=== PATIENT | female | born 1975 | race Caucasian/White ===

== ENCOUNTER 2022-06-21 16:36 | Emergency (ER) | payer MEDICARE, SELFPAY ==
[2022-06-21 16:46] VITALS: BP 116/79; PULSE 82; RESP 18; TEMP 36.8; O2SAT 99; BMI 27.4
--- NOTE | 2022-06-21 17:23 | ED_ITS ---
HPI - General Adult General Chief complaint: Laceration/Wound Stated complaint: Infected pinky finger Time Seen by Provider: 06/21/22 16:43 History of Present Illness HPI narrative: This 46-year-old female comes in with a paronychial infection of her left little finger. These symptoms started a bit more than a day ago. She has some mild erythema on the base of the nail of the left little finger. There is an area of drainage right next to the nail. She came in today because she is concerned about sepsis. She has had a kidney transplant and is on anti-rejection drugs. She states that she has had sepsis 3 times in the past. Today she is not having any fever, hypotension, or tachycardia. The erythema and discomfort is located only in the distal portion of the left little finger. There is no sign of spread from this location. Related Data Home Medications Medication Instructions Recorded Confirmed Unobtainable 06/21/22 06/21/22 Allergies Allergy/AdvReac Type Severity Reaction Status Date / Time adhesive tape Allergy Mild Rash Verified 06/21/22 16:53 secobarbital [From Seconal] Allergy Mild hyperactivi Verified 06/21/22 16:53 ty phlorohydrate Allergy Mild swelling Uncoded 06/21/22 16:53 of left arm Review of Systems Status of ROS: Reports: 10 or more systems reviewed and unremarkable except as noted in History and below Narrative: Constitutional: No fevers, no weight gain or loss. Eyes: No discharge. No vision changes. HENT: No congestion, no sore throat, no ear pain. Cardiovascular: No chest pain, no palpitations. Respiratory: No shortness of breath, no wheezes, no cough. Gastrointestinal: No abdominal pain, no vomiting, no diarrhea. Genitourinary: No dysuria, no hematuria. Musculoskeletal: Normal range of motion. Skin: No rashes, no pruritis. Paronychial infection the left little finger. Neurological: No dizziness, weakness, sensory change, speech change. Endo/Heme/Allergies: No bruising or bleeding. No polydipsia. Pysch: no suicidality, no anxiety, no insomnia. All other systems reviewed and are negative. PFSH PFS Social History Smoking Status: Never smoker Second hand tobacco smoke exposure: No How often do you have a drink containing alcohol: monthly or less AUDIT-C Alcohol total score: 1 Non-prescribed substance use: denies use Exam Narrative: Exam Narrative: Constitutional: Well-developed, well-nourished, no acute distress. HEENT: Normocephalic, atraumatic. Neck: Normal range of motion. Nontender. Supple. Heart: Intact distal pulses. Lungs: No chest discomfort. No wheezes, rhonchi, or rales. Abdomen: Nontender. Back: Normal range of motion. Extremities: Normal range of motion. Small area of erythema with on the edge of the left little finger nail. This is typical of a paronychial infection which appears to have drained this very small amount of fluid. Skin: Intact. No rash. Warm. No erythema or pallor. Neurologic: No altered sensation. No weakness. Alert and oriented. Psychiatric: No suicidality. No anxiety or depression. No insomnia. Nursing notes and vitals signs are reviewed. Const: Vital Signs, click to edit/add: Vital Signs - 24 hr 06/21/22 16:46 Temperature 98.2 F Pulse Rate [Right Pulse Oximeter] 82 Respiratory Rate 18 Blood Pressure [Le ft Upper Arm] 116/79 Pulse Oximetry 99 Oxygen Delivery Me thod Room Air Course Vital Signs Vital signs: Initial Vital Signs Temperature 98.2 F 06/21/22 16:46 Temperature Source Temporal Artery Scan 06/21/22 16:46 Pulse Rate 82 06/21/22 16:46 Respiratory Rate 18 06/21/22 16:46 Blood Pressure 116/79 06/21/22 16:46 Blood Pressure Mean 91 06/21/22 16:46 Blood Pressure Position Supine 06/21/22 16:46 Pulse Oximetry 99 06/21/22 16:46 Oxygen Delivery Method 06/21/22 16:46 Vital Signs Temperature 98.2 F 06/21/22 16:46 Pulse Rate 82 06/21/22 16:46 Respiratory Rate 18 06/21/22 16:46 Blood Pressure 116/79 06/21/22 16:46 Pulse Oximetry 99 06/21/22 16:46 Oxygen Delivery Method 06/21/22 16:46 Temperature 98.2 F 06/21/22 16:46 Pulse Rate 82 06/21/22 16:46 Respiratory Rate 18 06/21/22 16:46 Blood Pressure 116/79 06/21/22 16:46 Pulse Oximetry 99 06/21/22 16:46 Oxygen Delivery Method 06/21/22 16:46 Medical Decision Making MDM Narrative Medical decision making narrative: This patient is somewhat hypervigilant with regard to a very small paronychial infection of her left little finger that appears to be healing properly on its own. She is afraid of sepsis and thus comes in for further evaluation and treatment. I did examine this area under magnification and cleanse the wound with alcohol. I placed a small amount of bacitracin ointment and then a Band- Aid. I gave reassurance is to her that this is a very localized small infection and is not showing any signs of progression or certainly sepsis. I did advise her regarding signs and symptoms that would indicate a need for return and re- evaluation. Discharge Plan Discharge Clinical Impression: Paronychia of finger of left hand Patient Disposition: Home, Self-Care Condition: Stable Instructions: Paronychia (ED) Additional Instructions: Keep wound clean and dry. Follow up with MD as needed or return if worsening symptoms occur. Prescriptions: No Action Unobtainable Stand Alone Forms: [address] Info Instructions
== END 2022-06-21 17:38 | disposition home or self-care (01) ==
LOC: ED 17:29
PROVIDERS: Emergency Provider Emergency Medicine Emergency Medical Services
DX: L03.012 Cellulitis of left finger (principal); Z94.0 Kidney transplant status
CPT/HCPCS: 99283

== ENCOUNTER 2023-12-10 13:32 | Outpatient (RCR) | payer MEDICARE, SELFPAY ==
[2023-12-10 13:50] VITALS: BP 120/78; PULSE 89; RESP 16; TEMP 36.4; O2SAT 94
[2023-12-10] MEDS: 0.9 % SODIUM CHLORIDE 1000 ml 1,000 ML IV (14:25)
== END 2024-06-07 23:59 | disposition home or self-care (01) ==
LOC: CCIC 13:32
PROVIDERS: Visit Provider Clinical Nurse Specialist
DX: E86.0 Dehydration (principal); N17.9 Acute kidney failure, unspecified; Z94.0 Kidney transplant status
CPT/HCPCS: 96360; J7030

== ENCOUNTER 2023-12-14 09:54 | Emergency (ER) | payer MEDICARE, SELFPAY ==
[2023-12-14 10:02] VITALS: BP 128/85; PULSE 86; RESP 18; TEMP 36.7; O2SAT 95; BMI 29.9
--- NOTE | 2023-12-14 10:31 | XR_ITS ---
Final Report Patient: DAVID BAINS Facility:?[facility] Patient ID:?[id number] Site Patient ID:?[id number]. Site :?[id number] Study:?XRay Chest 2 VIEW-12/14/2023 10:52:23 AM Ordering Physician:?DR RAHMAN Final Report: INDICATION: COUGH X 3 WEEKS TECHNIQUE: Chest 2 views. COMPARISON: Chest x-ray June 27, 2023. FINDINGS: Cardiovascular and mediastinum: Heart size and vasculature are normal in caliber and appearance. Lungs and pleural spaces: Small right pleural effusion and mild patchy opacity which may represent atelectasis or consolidation. The left lung remains clear. No pneumothorax. Bones and soft tissues: Reported [employer] shunt partially visualized. IMPRESSION: Small right pleural effusion and mild patchy opacity which may represent atelectasis or consolidation. Dictated by Morgan Vizcaino MD @ 12/14/2023 10:58:00 AM (Electronic Signature)
--- NOTE | 2023-12-14 10:40 | ED_ITS ---
HPI - General Adult General Date Seen: 12/14/23 Chief complaint: Cough Stated complaint: coughed up blood an hour ago Time Seen by Provider: 12/14/23 10:20 Source: patient, RN notes reviewed and old records reviewed Mode of arrival: ambulatory Limitations: no limitations History of Present Illness HPI narrative: Patient is a 48-year-old woman with a history of kidney transplant in 2013 who presents for evaluation of blood tinged sputum. She tells me that she has had an illness that started around 's Day including cough, headache, fatigue, congestion etcetera. She tells me that she contacted her transplant team, apparently had a creatinine at that time of 2.9 was told that she should rest and increase fluids. She was here last she says get IV fluids. This morning, she was scheduled to go to [facility] for her routine blood draw, but she coughed up sputum that was pink tinged. She reports some shortness of breath over the past couple of weeks, she has some pain in bilateral lateral rib cage area only when she coughs. She tells me she has a history of blood clots in both of her arms, but has never been on anticoagulation so I suspect that this was not DVT. She takes a baby aspirin at present. She has not had fevers. She does not smoke, does not drink. Has not had any lower extremity swelling or pain. She is unsure whether her creatinine had returned to baseline, I do not see any evidence of a visit from last or any blood work. Related Data Home Medications Medication Instructions Recorded Confirmed albuterol 90 mcg/actuation aerosol mcg inhalation 12/10/23 inhaler cyclosporine 25 mg capsule 25 mg PO BID 12/10/23 12/14/23 ferrous sulfate 300 mg (60 mg 300 mg PO QDAY 12/10/23 12/14/23 iron)/5 mL oral liquid mycophenolate acid 12/10/23 pantoprazole 40 mg tablet,delayed 40 mg PO DAILY 12/10/23 12/14/23 release sertraline 100 mg tablet 100 mg PO DAILY 12/10/23 12/14/23 sodium bicarbonate 650 mg tablet 650 mg PO DAILY PRN 12/10/23 12/14/23 sumatriptan succinate 50 mg tablet 50 mg PO Q2-4H PRN 12/10/23 12/14/23 (Imitrex) Previous Rx's Medication Instructions Recorded albuterol sulfate 90 mcg/actuation 2 puff inhalation 6XD PRN 12/14/23 aerosol inhaler shortness of breath or wheezing #6.7 grams doxycycline hyclate 100 mg capsule 100 mg PO BID #20 caps 12/14/23 Allergies Allergy/AdvReac Type Severity Reaction Status Date / Time adhesive tape Allergy Mild Rash Verified 12/14/23 10:09 secobarbital [From Seconal] Allergy Mild hyperactivi Verified 12/14/23 10:09 ty ceftriaxone Allergy Hives Verified 12/14/23 10:09 [id number] Reductase Allergy ataxia Verified 12/14/23 10:09 Inhibitor chloral hydrate AdvReac Verified 12/14/23 10:09 simvastatin AdvReac Verified 12/14/23 10:09 phlorohydrate Allergy Mild swelling Uncoded 06/27/23 08:45 of left arm Review of Systems Status of ROS: Reports: 10 or more systems reviewed and unremarkable except as noted in History and below PFSH [facility] Surgical History Transplanted kidney ?Z94.0 - Kidney transplant status (ICD-10) Social History Smoking Status: Never smoker Do you use any of these nicotine containing products: None Second hand tobacco smoke exposure: No How often do you have a drink containing alcohol: monthly or less AUDIT-C Alcohol total score: 1 Non-prescribed substance use: denies use Exam Narrative: Exam Narrative: Vital signs as noted above. In general, an alert, nontoxic woman. Breathing easily. Head: Normocephalic, atraumatic. Eyes: Pupils are equal reactive. Extraocular movements are full. Conjunctivae are normal. ENT: Mucous membranes are moist. Throat is normal. Neck: Supple without lymphadenopathy. Heart: Regular rate and rhythm. No murmur or rub. Lungs: Scattered bilateral wheezes, no increased work of breathing. Abdomen: Soft and nontender. No organomegaly. Extremities: Well perfused. No edema. No calf tenderness. Pulses intact. Neurologic: Patient is alert and oriented to person and place. Speech is fluent. Face is symmetric. Moves all extremities equally. Affect: Normal. Skin: Warm and dry. Well perfused. Const: Vital Signs, click to edit/add: Vital Signs - 24 hr 12/14/23 10:02 Temperature 98.1 F Pulse Rate [Right Pulse Oximeter] 86 Respiratory Rate 18 Blood Pressure [Le ft Upper Arm] 128/85 Pulse Oximetry 95 Oxygen Delivery Me thod Room Air Documenting provider has reviewed patient's vital signs: yes Course Course ED Course: Overall, would suspect that she had some bleeding from an upper airway source, such as a with that of a nose bleed or something in her throat. I have relatively low suspicion of pneumonia, pulmonary embolism or other serious cause. She did not have any significant amount of bleeding. She is not anticoagulated. She does have some wheezing, will give her a DuoNeb. I am going to check a D-dimer due to this reported history of blood clots in her arms although again given that she has never been anticoagulated it seems somewhat unlikely that these were DVT. Will also recheck her creatinine today. Labs notable for a normal white blood cell count of 5.5, hemoglobin of 10.2. Her D-dimer was 0.53, which under the circumstances I think is normal. Her creatinine today is 2.7, down slightly from previous. I have relayed that to her. Potassium is 5.2, BUN is 53. She would discuss this with her transplant team. Chest x-ray read as showing a tiny pleural effusion on the right in an area of either consolidation or atelectasis. Overall, her presentation is most consistent with bronchitis, but given her immunosuppressed state I am going to cover her an antibiotic. She should return for worsening symptoms and otherwise follow up with her transplant team as discussed. I have given her an inhaler as well to be used as needed for shortness of breath, wheezing or coughing. Vital Signs Vital signs: Initial Vital Signs Temperature 98.1 F 12/14/23 10:02 Temperature Source Temporal Artery Scan 12/14/23 10:02 Pulse Rate 86 12/14/23 10:02 Respiratory Rate 18 12/14/23 10:02 Blood Pressure 128/85 12/14/23 10:02 Blood Pressure Mean 99 12/14/23 10:02 Blood Pressure Position Sitting 12/14/23 10:02 Pulse Oximetry 95 12/14/23 10:02 Oxygen Delivery Method Room Air 12/14/23 10:02 Vital Signs Temperature 98.1 F 12/14/23 10:02 Pulse Rate 86 12/14/23 10:02 Respiratory Rate 18 12/14/23 10:02 Blood Pressure 128/85 12/14/23 10:02 Pulse Oximetry 95 12/14/23 10:02 Oxygen Delivery Method Room Air 12/14/23 10:02 Temperature 98.1 F 12/14/23 10:02 Pulse Rate 86 12/14/23 10:02 Respiratory Rate 18 12/14/23 10:02 Blood Pressure 128/85 12/14/23 10:02 Pulse Oximetry 95 12/14/23 10:02 Oxygen Delivery Method Room Air 12/14/23 10:02 Medications Administered Medications: Discontinued Medications Generic Name Dose Route Start Last Admin Trade Name Freq PRN Reason Stop Dose Admin Albuterol/Ipratropium 1 neb 12/14/23 10:32 12/14/23 11:13 Iprat-Albut 0.5-2.5 Mg/3 Ml Neb 12/14/23 10:33 1 neb ONCE ONE Administration Medical Decision Making Lab Data Labs: Lab Results 12/14/23 Range/Units 11:32 WBC 5.45 (4.50-11.00) K/uL RBC 3.82 L (4.00-5.20) m/uL Hgb 10.2 L (12.0-16.0) gm/dL Hct 32.1 L (33.0-51.0) % MCV 84 (80-100) fL MCH 27 (26-34) pg MCHC 32 (32-36) gm/dL RDW Coeff of Nery 13.5 (11.5-15.5) % Plt Count 215 (140-440) K/uL Neut % (Auto) 55.5 (42.0-72.0) % Lymph % (Auto) 13.4 L (20-44) % [place] % (Auto) 8.3 (0.0-11.0) % Eos % (Auto) 22.4 H (0.0-7.0) % Baso % (Auto) 0.2 (0.0-3.0) % Neut # (Auto) 3.03 (1.7-7.0) K/uL Lymph # (Auto) 0.70 L (0.90-2.90) K/uL [place] # (Auto) 0.50 (0.00-0.90) K/UL Eos # (Auto) 1.20 H (0.00-0.50) K/uL Baso # (Auto) 0.01 (0.00-0.30) K/uL Abs Immat Gran (auto) 0.01 (0.00-0.30) K/uL Imm/Tot Granulo (auto) 0.2 % D-Dimer Quant (PE/DVT) 0.53 H (0.00-0.50) ug/ml Sodium 139 (135-149) mmol/L Potassium 5.2 H (3.6-5.1) mmol/L Chloride 109 (96-114) mmol/L Carbon Dioxide 16 L (20-32) mmol/L Anion Gap 14 (7-15) mEq/L BUN 53 H (5-24) mg/dL Creatinine 2.7 H (0.5-1.5) mg/dL Estimated Creat Clear 24.11 Estimated GFR 21 ml/min Glucose 97 (60-115) mg/dL Calcium 9.4 (8.4-10.6) mg/dL Discharge Plan Discharge Clinical Impression: Pneumonia Patient Disposition: Home, Self-Care Condition: Stable Instructions: Community Acquired Pneumonia (DC) Additional Instructions: Antibiotic as prescribed, inhaler as needed for cough/shortness of breath. Your workup is otherwise within normal limits, aside from a mildly elevated creatinine of 2.7. Please discuss this with your transplant team. For worsening respiratory symptoms, high fevers or other significant changes, return any time to the emergency department. Prescriptions: New doxycycline hyclate 100 mg capsule 100 mg PO BID Qty: 20 0RF albuterol sulfate 90 mcg/actuation HFA aerosol inhaler 2 puff inhalation 6XD PRN (Reason: shortness of breath or wheezing) Qty: 6.7 0RF No Action mycophenolate acid ferrous sulfate 300 mg (60 mg iron)/5 mL liquid 300 mg PO QDAY sertraline 100 mg tablet 100 mg PO DAILY albuterol 90 mcg/actuation aerosol inhalation sodium bicarbonate 650 mg tablet 650 mg PO DAILY PRN sumatriptan succinate [Imitrex] 50 mg tablet 50 mg PO Q2-4H PRN Rx Instructions: do not exceed 4 doses per 24 hrs cyclosporine 25 mg capsule 25 mg PO BID pantoprazole 40 mg tablet,delayed release (DR/EC) 40 mg PO DAILY Follow Up/Referrals: Provider,Not a Local [Primary Care Provider] - Stand Alone Forms: [employer] Info Instructions
[2023-12-14] MEDS: IPRAT-ALBUT 0.5-2.5 MG/3 ML NEB 1 NEB IH (11:13)
[2023-12-14 11:45] LABS: Basophils Absolute Auto 0.01 K/uL (0.00-0.30); Basophils Percent Auto 0.2 % (0.0-3.0); Eosinophils Percent Auto 22.4 % (0.0-7.0); Hematocrit 32.1 % (33.0-51.0); Hemoglobin* 10.2 gm/dL (12.0-16.0); Immature Granulocytes Abs Auto 0.01 K/uL (0.00-0.30); Immature Granulocytes Pct Auto 0.2 %; Lymphocytes Percent Auto 13.4 % (20-44); Mean Corpuscular HGB Conc 32 gm/dL (32-36); Mean Corpuscular Hemoglobin 27 pg (26-34); Mean Corpuscular Volume 84 fL (80-100); Monocytes Percent Auto 8.3 % (0.0-11.0); Neutrophils Absolute Auto 3.03 K/uL (1.7-7.0); Neutrophils Percent Auto 55.5 % (42.0-72.0); Platelet Count* 215 K/uL (140-440); RDW Coefficient of Variation % 13.5 % (11.5-15.5); Red Blood Count 3.82 m/uL (4.00-5.20); White Blood Count* 5.45 K/uL (4.50-11.00)
[2023-12-14 11:49] LABS: Slide Review Reflex No
[2023-12-14 11:55] LABS: Chloride* 109 mmol/L (96-114)
[2023-12-14 11:56] LABS: Potassium* 5.2 mmol/L (3.6-5.1); Sodium* 139 mmol/L (135-149)
[2023-12-14 11:59] LABS: Anion Gap 14 mEq/L (7-15); Blood Urea Nitrogen* 53 mg/dL (5-24); Calcium* 9.4 mg/dL (8.4-10.6); Carbon Dioxide* 16 mmol/L (20-32); Creatinine* 2.7 mg/dL (0.5-1.5); Est. Creatinine Clearance* 24.11; Estimated Glomerular Filt Rate 21 ml/min; Glucose* 97 mg/dL (60-115)
[2023-12-14 12:07] LABS: D Dimer Quantitative* 0.53 ug/ml (0.00-0.50)
--- NOTE | 2023-12-14 14:00 | ED.NURSE ---
patient refused to use [facility] and wants medication sent to own pharmacy at [place].
== END 2023-12-14 13:03 | disposition home or self-care (01) ==
PROVIDERS: Emergency Provider Emergency Medicine
DX: J18.9 Pneumonia, unspecified organism (principal)
CPT/HCPCS: 36415; 71046; 80048; 85025; 85379; 94640; 99284

== ENCOUNTER 2024-04-11 20:07 | Emergency (ER) | payer MEDICARE, SELFPAY ==
[2024-04-11 20:11] VITALS: BP 118/78; PULSE 85; RESP 16; TEMP 36.6; O2SAT 98; BMI 29.5
--- NOTE | 2024-04-11 22:02 | ED.GENADULT ---
HPI - General Adult General Date Seen: 04/11/24 Chief complaint: Laceration/Wound Stated complaint: R thumb lac Time Seen by Provider: 04/11/24 22:02 History of Present Illness HPI narrative: This is a pleasant 48-year-old female with a history of kidney transplant (follows at the [facility]) presenting to the ER today for a injury to her right thumb that she sustained accidentally this evening with a kitchen knife. She says she accidentally poked herself on the radial aspect of her right thumb on the radial side of the IP joint with a paring knife. She suffered a laceration that was oozing blood at home. Bleeding was able to be slowed and controlled with direct pressure, however whenever she bends her thumb knuckle it starts bleeding again. No associated numbness in her thumb. According to electronic health record most recent Tdap was in 2014. Patient thinks that is probably correct. She agrees to have it updated here. Incidentally the patient also is concerned about a draining breast lesion. She had a breast lump noted last winter and had biopsied through the [facility] at the [facility] in [place] in September. The biopsy site was never closed. It has been draining some liquid, sometime serous, sometimes purulent ever since then. She is worried that it keeps draining and making a mess on her shorts and wonders if we can put a stitch in it tonight. She has sent a message to her primary care doctor about the drainage, but has not heard back yet. She says the drainage is really not been changing lately, just that has not been getting better. No fevers. There is a little bit of redness around the biopsy site but that is not changed recently. Related Data Home Medications ?Medication ?Instructions ?Recorded ?Confirmed albuterol 90 mcg/actuation aerosol mcg inhalation 12/10/23 inhaler cyclosporine 25 mg capsule 25 mg PO BID 12/10/23 12/14/23 ferrous sulfate 300 mg (60 mg 300 mg PO QDAY 12/10/23 12/14/23 iron)/5 mL oral liquid mycophenolate acid 12/10/23 pantoprazole 40 mg tablet,delayed 40 mg PO DAILY 12/10/23 12/14/23 release sertraline 100 mg tablet 100 mg PO DAILY 12/10/23 12/14/23 sodium bicarbonate 650 mg tablet 650 mg PO DAILY PRN 12/10/23 12/14/23 sumatriptan succinate 50 mg tablet 50 mg PO Q2-4H PRN 12/10/23 12/14/23 (Imitrex) Previous Rx's ?Medication ?Instructions ?Recorded albuterol sulfate 90 mcg/actuation 2 puff inhalation 6XD PRN 12/14/23 aerosol inhaler shortness of breath or wheezing #6.7 grams doxycycline hyclate 100 mg capsule 100 mg PO BID #20 caps 12/14/23 amoxicillin 500 mg capsule 500 mg PO TID #15 caps 04/11/24 Allergies Allergy/AdvReac Type Severity Reaction Status Date / Time adhesive tape Allergy Mild Rash Verified 12/14/23 10:09 secobarbital [From [place]] Allergy Mild hyperactivi Verified 12/14/23 10:09 ty ceftriaxone Allergy Hives Verified 12/14/23 10:09 [id number] Reductase Allergy ataxia Verified 12/14/23 10:09 Inhibitor chloral hydrate AdvReac Verified 12/14/23 10:09 simvastatin AdvReac Verified 12/14/23 10:09 phlorohydrate Allergy Mild swelling Uncoded 06/27/23 08:45 of left arm PFSH [facility] Surgical History Transplanted kidney ?Z94.0 - Kidney transplant status (ICD-10) Social History Smoking Status: Never smoker Do you use any of these nicotine containing products: None Second hand tobacco smoke exposure: No How often do you have a drink containing alcohol: monthly or less AUDIT-C Alcohol total score: 1 Non-prescribed substance use: denies use Exam Narrative: Exam Narrative: Constitutional: Appears well-developed and well-nourished. Alert. Conversant. Non toxic. HENT: Head: Atraumatic. Nose: Nose normal. Mouth/Throat: Oral mucosa is clear and moist. no trismus. Pharynx normal. Tonsils symmetric. No tonsillar enlargement, erythema, or exudate. Eyes: Conjunctivae normal. EOM normal. Pupils equal, round, and reactive to light. No scleral icterus. Neck: Normal range of motion. Neck supple. No tracheal deviation present. Cardiovascular: Normal rate, regular rhythm. . Symmetric radial artery pulses Pulmonary/Chest: Effort normal. No stridor. No respiratory distress. Musculoskeletal: RUE: She has a 2-3 mm laceration on the radial border of her right thumb on the radial side of the right IP joint. Intact flexion and extension of the IP. Intact radial and ulnar digital nerve function. Normal brisk distal capillary refill. No evidence for any palpable or visible foreign body. No other lacerations. Other than her thumb, her upper extremities uninjured- Normal range of motion. No tenderness. No deformity LUE: Normal range of motion. No tenderness. No deformity RLE: Normal range of motion. No edema. No tenderness. No deformity LLE: Normal range of motion. No edema. No tenderness. No deformity Breast: Exam performed with female blood bank laboratory technician. The patient does have a roughly 1 cm diameter open lesion affecting the skin of her breast just superior to the areola on the right breast. It is not draining any fluid at this time but the patient reports that has been draining some purulent fluid at home. There is a very subtle area of erythema on the skin roughly 3 or 4 cm in diameter adjacent to that lesion. No palpable fluctuance. No induration. Neurological: Alert and oriented to person, place, and time. Normal strength. CN II-VII intact. No sensory deficit. GCS eye subscore is 4. GCS verbal subscore is 5. GCS motor subscore is 6. Normal coordination Skin: Skin is warm and dry. No rash noted. No pallor. Normal capillary refill. Psychiatric: Normal mood. Normal affect. Const: Vital Signs, click to edit/add: Vital Signs - 24 hr 04/11/24 20:11 Temperature 98 F Pulse Rate [Pulse Oximeter] 85 Respiratory Rate 16 Blood Pressure [Ri ght Upper Arm] 118/78 Pulse Oximetry 98 Oxygen Delivery Me thod Room Air Course Vital Signs Vital signs: Initial Vital Signs Temperature 98 F 04/11/24 20:11 Temperature Source Temporal Artery Scan 04/11/24 20:11 Pulse Rate 85 04/11/24 20:11 Respiratory Rate 16 04/11/24 20:11 Blood Pressure 118/78 04/11/24 20:11 Blood Pressure Mean 91 04/11/24 20:11 Blood Pressure Position Sitting 04/11/24 20:11 Pulse Oximetry 98 04/11/24 20:11 Oxygen Delivery Method Room Air 04/11/24 20:11 Vital Signs Temperature 98 F 04/11/24 20:11 Pulse Rate 85 04/11/24 20:11 Respiratory Rate 16 04/11/24 20:11 Blood Pressure 118/78 04/11/24 20:11 Pulse Oximetry 98 04/11/24 20:11 Oxygen Delivery Method Room Air 04/11/24 20:11 Temperature 98 F 04/11/24 20:11 Pulse Rate 85 04/11/24 20:11 Respiratory Rate 16 04/11/24 20:11 Blood Pressure 118/78 04/11/24 20:11 Pulse Oximetry 98 04/11/24 20:11 Oxygen Delivery Method Room Air 04/11/24 20:11 Medications Administered Medications: Discontinued Medications Generic Name Dose Route Start Last Admin Trade Name Gwyn PRN Reason Stop Dose Admin Amoxicillin 500 mg 04/11/24 22:40 04/11/24 23:05 Amoxicillin 250 Mg Capsule PO 04/11/24 22:41 500 mg ONCE ONE Administration Diphtheria/Tetanus/Acell Pertussis 0.5 ml 04/11/24 22:10 04/11/24 22:20 Tetanus/Diphth/Pertussis 0.5 Ml Syringe IM 04/11/24 22:11 0.5 ml .ONCE ONE Administration Medical Decision Making MDM Narrative Medical decision making narrative: Findings and exam are consistent with an uncomplicated laceration on the radial side of the IP joint of her right thumb. It does not require sutures. We did close it with Dermabond to help keep it from breaking open bleeding whenever she bends her thumb. Discussed with the patient that there is a risk that Dermabond could fail since this is around the joint. She will do her best keep the wound, clean, dry, rest her thumb to keep it from breaking open and rebleeding. There is no evidence at this time to suggest any associated fracture or foreign body. There is no evidence to suggest tendon or arterial injury and patient is neurologically in tact. Indications to seek urgent reevaluation and signs of infection (including but not limited to increasing pain, redness, swelling, fevers, and drainage) were reviewed. Tetanus is updated tonight. This is a clean and non-contaminated wound in which prophylactic antibiotics are not indicated. An understanding of the discharge instructions and need for follow up were verbally confirmed. Incidentally she also notes that she has had drainage from a right breast biopsy incision ever since the incision was performed last September. She has not yet followed up with her doctor or surgeon about the drainage but while she is here in the ER [facility] she would like us to address it. On my evaluation there is an open wound on the right breast superior to the areola. No active drainage at this time. No palpable fluctuance to suggest an underlying is seroma or abscess. There is a subtle bit of erythema of the skin around the biopsy site which could represent a possible cellulitis although based on the chronicity, I wonder if it may just be irritated from the open wound. At this point I would not suture the wound closed because if there is an infection would potentially seal in abscess and make it worse. She is concerned because the bandages she is putting on at home were not containing all the drainage in a keep make MS on her shirt. I think it is reasonable put her on a course of antibiotics because of the redness (especially because she is immunosuppressed from her kidney transplant) and ever continuing dressings antibiotic ointment therapy. Would recommend close outpatient follow-up with her surgeon for further evaluation. She likely will need surgery follow-up or wound clinic follow-up to have the wound heal. Discharge Plan Discharge Clinical Impression: Laceration of thumb, Breast wound Patient Disposition: Home, Self-Care Condition: Stable Instructions: Finger Laceration (ED), Wound Dehiscence (ED), Laceration Without Closure (ED) Additional Instructions: For your thumb laceration, please keep the dressing in place and keep the wound clean and dry. Keep it covered with the skin glue. The wound should heal within the next 5-7 days. After that it is okay to we gave them wet and let the skin glue peel off. Monitor for signs of infection such as redness, swelling, or pus draining from the wound, and if any problems occur, please come back to the ER right away. For the wound on your breast, please do the antibiotics twice daily for 5 days. Call your doctors at [facility] tomorrow and make an appointment with your so primary care provider or your surgeon to recheck for wound. Prescriptions: New amoxicillin 500 mg capsule 500 mg PO TID Qty: 15 0RF No Action mycophenolate acid ferrous sulfate 300 mg (60 mg iron)/5 mL liquid 300 mg PO QDAY sertraline 100 mg tablet 100 mg PO DAILY albuterol 90 mcg/actuation aerosol inhalation sodium bicarbonate 650 mg tablet 650 mg PO DAILY PRN sumatriptan succinate [Imitrex] 50 mg tablet 50 mg PO Q2-4H PRN Rx Instructions: do not exceed 4 doses per 24 hrs cyclosporine 25 mg capsule 25 mg PO BID pantoprazole 40 mg tablet,delayed release (DR/EC) 40 mg PO DAILY doxycycline hyclate 100 mg capsule 100 mg PO BID Qty: 20 0RF albuterol sulfate 90 mcg/actuation HFA aerosol inhaler 2 puff inhalation 6XD PRN (Reason: shortness of breath or wheezing) Qty: 6.7 0RF Follow Up/Referrals: Provider,Not a Local [Primary Care Provider] - Stand Alone Forms: [place] Info Instructions
--- NOTE | 2024-04-11 22:17 | PC.NURSE ---
Pt moved to room 6 for pvt area. Here for lac but also has had some continues drainage from a breast bx done in the past.
[2024-04-11] MEDS: TETANUS/DIPHTH/PERTUSSIS 0.5 ML SYRINGE IM (22:20)
[2024-04-11] MEDS: AMOXICILLIN 250 MG CAPSULE 500 MG PO (23:05)
== END 2024-04-11 23:02 | disposition home or self-care (01) ==
LOC: ED 22:55
PROVIDERS: Emergency Provider Emergency Medicine
DX: S61.011A Laceration without foreign body of right thumb without damage to nail, initial encounter (principal); W26.0XXA Contact with knife, initial encounter; S21.001A Unspecified open wound of right breast, initial encounter
CPT/HCPCS: 12001; 90471; 90715; 99282; 99283; A9270